=== PATIENT | female | born 1965 | race Asian ===

== ENCOUNTER → 2020-07-14 09:10 | Outpatient (BNVA) | payer OTHER, SELFPAY | PROVIDERS: PCP Internal Medicine; Visit Provider Urology | DX: Z76.89 Persons encountering health services in other specified circumstances (principal) ==

== ENCOUNTER 2021-07-20 09:40 | Outpatient (REF) | payer OTHER, SELFPAY ==
--- NOTE | ~2021-07-20 | US_ITS ---
EXAMINATION: US RETROPERITONEAL LIMITED (RENAL ONLY) CLINICAL INFORMATION: Benign lipomatous neoplasm. Angiomyolipoma right kidney. COMPARISON: None TECHNIQUE: Real-time imaging of the kidneys. FINDINGS: RIGHT KIDNEY: 10.7 x 3.9 x 5.0 cm (SAG x AP x TRV). The kidney is normal in size, contour, and echogenicity. Renal cortical thickness is normal. No renal calculi or hydronephrosis. 1.1 x 1 x 0.9 cm echogenic lesion associated with the midpole of the right kidney. This be most consistent with an angiomyolipoma. LEFT KIDNEY: 10.7 x 4.7 x 5.2 cm (SAG x AP x TRV). The kidney is normal in size, contour, and echogenicity. Renal cortical thickness is normal. No calculi or focal parenchymal lesions. No hydronephrosis. US/US renal BI IMPRESSION: There are no previous to compare. There is an echogenic 1.1 x 1 x 0.9 cm lesion involving the midpole of the right kidney which would be most consistent with an angiomyolipoma. Consider follow-up in 6 months to ensure stability
== END 2021-07-20 09:41 | disposition home or self-care (01) ==
LOC: HO.HMGCX 09:40
PROVIDERS: PCP Internal Medicine; Visit Provider Urology
DX: D17.9 Benign lipomatous neoplasm, unspecified (principal)
CPT/HCPCS: 76775

== ENCOUNTER → 2021-08-03 10:02 | Outpatient (BNVA) | payer OTHER, SELFPAY | PROVIDERS: PCP Internal Medicine ==

== ENCOUNTER 2022-01-04 06:53 | Outpatient (REF) | payer OTHER, SELFPAY ==
--- NOTE | ~2022-01-04 | CT_ITS ---
EXAMINATION: CT ABDOMEN AND PELVIS WITHOUT CONTRAST CLINICAL INFORMATION: Benign lipomatous lesion at the right kidney COMPARISON: Renal ultrasound dated 07/20/2021 TECHNIQUE: Multidetector volumetric imaging was performed from the superior aspect of the liver through the pubic symphysis. Sagittal and coronal reformatted images were obtained on the technologist's workstation. This CT examination was performed using dose optimization techniques as appropriate, variously including the following: *Automated exposure control *Adjustment of mA and/or kV according to patient size (this includes techniques or standardized protocols for targeted exams where dose is matched to indication/reason for exam; i.e. extremities or head) *Use of iterative reconstruction technique DLP: 587 mGy-cm FINDINGS: LUNG BASES: The visualized lung bases are unremarkable. LIVER, GALLBLADDER, AND BILIARY TREE: Liver normal in size, contour and morphology. Mild hepatic steatosis. No focal liver lesions. No intra or extrahepatic biliary dilatation. Gallbladder unremarkable. PANCREAS: Unremarkable. SPLEEN: Unremarkable. ADRENAL GLANDS: Unremarkable. KIDNEYS AND URETERS: The kidneys are normal in size, shape, and attenuation. There is a 9 mm bulk fat-containing lesion in the lower pole right kidney compatible with an angiomyolipoma. No additional focal renal lesions. No hydronephrosis, hydroureter, or calculi seen. No perinephric stranding. BLADDER: Unremarkable. GASTROINTESTINAL TRACT: The small and large bowel are unremarkable. The appendix is unremarkable. ABDOMINAL WALL: No significant hernia is appreciated. LYMPH NODES: Normal. VASCULAR: Unremarkable. PELVIC VISCERA: Bulbous configuration of the uterus measuring approximately 14.0 x 8.6 x 10.0 cm. Left ovary unremarkable. Right ovary not clearly identified. OSSEOUS STRUCTURES: No acute or suspicious osseous abnormalities. Posterior spinal fusion L5-S1 with interbody cage. CT/CT abdomen pelvis wo con IMPRESSION: * There is a 9 mm angiomyolipoma within the right kidney. ACR does not recommend follow-up for lesions of this size due to their extremely slow growth rate and lack of malignant potential. * Enlarged uterus, suspect leiomyomatous change. Recommend pelvic ultrasound for further evaluation. * Mild hepatic steatosis.
[2022-01-04] MEDS: Barium Sulfate Oral (Vanilla) 450 ML ORAL.SUSP 900 ML PO (09:28)
== END 2022-01-04 06:54 | disposition home or self-care (01) ==
LOC: HO.CT 06:53
PROVIDERS: PCP Internal Medicine
DX: D17.9 Benign lipomatous neoplasm, unspecified (principal)
CPT/HCPCS: 74176

== ENCOUNTER → 2022-02-01 11:06 | Outpatient (BNVA) | payer OTHER, SELFPAY | PROVIDERS: PCP Internal Medicine; Visit Provider Urology | DX: Z13.89 Encounter for screening for other disorder (principal) ==

== ENCOUNTER 2023-01-18 13:44 | Outpatient (REF) | payer OTHER, SELFPAY ==
--- NOTE | ~2023-01-18 | US_ITS ---
EXAMINATION: US RETROPERITONEAL LIMITED (RENAL ONLY) CLINICAL INFORMATION: Benign lipomatous neoplasm, unspecified. COMPARISON: CT abdomen and pelvis without contrast 01/04/2022. Ultrasound retroperitoneal limited (renal only) 07/20/2021. TECHNIQUE: Real-time imaging of the kidneys. FINDINGS: RIGHT KIDNEY: 10.1 x 4.3 x 4.6 cm (SAG x AP x TRV). The kidney is normal in size, contour, and echogenicity. Renal cortical thickness is normal. No calculi or focal parenchymal lesions. No hydronephrosis. At the lower pole, a 1.2 x 1.0 x 0.9 cm hyperechoic, circumscribed mass is seen. On the ultrasound examination dated 08/07/2021, this measured 1.1 x 1.0 x 0.9 cm. LEFT KIDNEY: 9.8 x 4.7 x 5.2 cm (SAG x AP x TRV). The kidney is normal in size, contour, and echogenicity. Renal cortical thickness is normal. No calculi or focal parenchymal lesions. No hydronephrosis. US/US renal BI IMPRESSION: A 1.2 cm hyperechoic mass is seen at the lower pole of the right kidney. This is consistent with prior CT imaging depicting a benign angiomyolipoma. Dimensions are stable from 07/21/2021.
== END 2023-01-18 13:45 | disposition home or self-care (01) ==
LOC: HO.US 13:44
PROVIDERS: PCP Internal Medicine; Visit Provider Urology
DX: D17.9 Benign lipomatous neoplasm, unspecified (principal)
CPT/HCPCS: 76775

== ENCOUNTER → 2023-02-08 10:36 | Outpatient (BNVA) | payer OTHER, SELFPAY | PROVIDERS: PCP Internal Medicine; Visit Provider Urology ==

== ENCOUNTER 2024-01-17 09:52 | Outpatient (REF) | payer OTHER, SELFPAY ==
--- NOTE | ~2024-01-17 | US_ITS ---
EXAMINATION: US RETROPERITONEAL LIMITED (RENAL ONLY) CLINICAL INFORMATION: Benign lipomatous neoplasm, unspecified. COMPARISON: Renal ultrasound 01/18/2023 and 07/20/2021. CT abdomen and pelvis 01/04/2022. TECHNIQUE: Real-time imaging of the kidneys. FINDINGS: RIGHT KIDNEY: 9.4 x 3.8 x 4.0 cm (SAG x AP x TRV). The kidney is normal in size, contour, and echogenicity. Renal cortical thickness is normal. No calculi or focal parenchymal lesions. No hydronephrosis. A 1.1 cm echogenic right lower pole renal mass previously 1.2 cm which may reflect an angiomyolipoma. No internal vascularity. LEFT KIDNEY: 9.5 x 4.6 x 4.5 cm (SAG x AP x TRV). The kidney is normal in size, contour, and echogenicity. Renal cortical thickness is normal. No calculi or focal parenchymal lesions. No hydronephrosis. US/US renal BI IMPRESSION: A 1.1 cm echogenic right lower pole renal mass previously measured 1.2 cm which may reflect an angiomyolipoma.
== END 2024-01-17 09:53 | disposition home or self-care (01) ==
LOC: HO.US 09:52
PROVIDERS: PCP Internal Medicine; Visit Provider Urology
DX: D17.9 Benign lipomatous neoplasm, unspecified (principal)
CPT/HCPCS: 76775

== ENCOUNTER 2024-03-06 13:44 | Outpatient (AMB) | payer OTHER, SELFPAY ==
--- NOTE | 2024-03-06 14:26 | A.OFFVIS_ITS ---
Intake Visit Reasons: 1y/US(SET) Intake Note: Patient is Present for Follow Up Ultrasound Urology Medication: None Antibiotic Allergies:None Blood Thinners: None Signal And Communications Maintainer Required: No Allergies acetaminophen [Percocet] Allergy (Unknown, Verified 03/06/24 14:27) unknown naproxen [Aleve] Allergy (Unknown, Verified 03/06/24 14:27) unknwn oxycodone [Percocet] Allergy (Unknown, Verified 03/06/24 14:27) unkown HPI Comments Details: Mirian is a pleasant [place] female. She is a patient of . She is seen for following urologic conditions - angiomyolipoma Stable imaging - Renal cortical thickness is normal. No calculi or focal parenchymal lesions. No hydronephrosis. A 1.1 cm echogenic right lower pole renal mass previously 1.2 cm which may reflect an angiomyolipoma. No internal vascularity. No need for ongoing follow-up Angiomyolipoma Stable imaging Imaging - 01/07 CT scan right 10 mm angiomyolipoma, 01/08 10 mm right angiomyolipoma Discussed natural history Follow-up not warranted Review of Systems Const Denies chills and Denies fever(s) Card Reports no additional complaints and Denies syncope Resp Denies cough GI Denies abdominal pain and Denies heartburn Reports as per HPI and Denies change in libido Neuro Denies syncope Psych Denies change in libido Endo Denies change in libido Physical Exam Const General: cooperative, healthy appearing, comfortable and no acute distress Orientation/consciousness: patient oriented x3 HEENT Face and sinus: Yes normal facial exam Mouth: moist mucous membranes Neck Neck: Yes normal visual inspection, Yes full ROM and Yes trachea midline Chest Chest palpation & inspection: normal inspection of the chest Resp Effort & Inspection: normal respiratory effort, able to speak in complete sentences and no respiratory distress GI Inspection: Yes normal to inspection Back/Spine/Pelvis Cervical Spine: normal cervical lordosis Thoracic/Lumbar Spine: thoracic and lumbar spine normal to inspection Skin General skin exam: no rashes or lesions noted Neuro General: patient oriented x3, gait normal, tone normal and moves all extremities Extrem General: Yes normal to inspection and Yes capillary refill normal Assessment & Plan Assessment & Plan (1) Angiomyolipoma: Comment: 1 cm right side Code(s): D17.9 - Benign lipomatous neoplasm, unspecified Category: Medical Plan P.r.n. follow-up Patient Instructions: Imaging studies, laboratory and physical exam results were discussed and reviewed in detail. No major barriers to patient understanding were identified. An opportunity to ask questions regarding the treatment plan was provided. All questions were answered. The patient expressed understanding and agreement with the above treatment plan. The patient is aware they should contact our office by phone for worsening of their current condition or the appearance of new urologic symptoms. Compliance is encouraged with any medications and followup testing that is ordered. It is a privilege to participate in the urologic care of your patient. If you have any questions or concerns regarding treatment for the above conditions, or other urologic issues, please do not hesitate to contact me. The office telephone contact is [phone]. This note is constructed using voice recognition software. While every effort has been made to ensure accuracy profiler hand errors may have been included. Yours sincerely, Dr Ortega Marshall MD, [facility] - Urology Providers of Expert, Compassionate Care for the Genitourinary System Coding Level of Care Code Est Pt Level 3 (40532) Diagnoses Angiomyolipoma D17.9
== END 2024-03-06 14:39 | disposition home or self-care (01) ==
PROVIDERS: Visit Provider Urology
DX: D17.9 Benign lipomatous neoplasm, unspecified (principal)
CPT/HCPCS: 99213

== ENCOUNTER → 2024-03-06 13:44 | Outpatient (BNVA) | payer OTHER, SELFPAY | PROVIDERS: Visit Provider Urology ==